=== PATIENT | male | born 1985 | race Caucasian/White ===

== ENCOUNTER 2018-02-09 15:02 | Emergency (ER) | payer OTHER, SELFPAY ==
[2018-02-09 15:04] VITALS: BP 156/87; PULSE 90; RESP 16; TEMP 37.1; O2SAT 98; BMI 28.6
[2018-02-09 15:10] VITALS: PULSE 95; RESP 16; TEMP 37.1; O2SAT 98
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
[2018-02-09 18:06] VITALS: PULSE 78; RESP 14; O2SAT 98
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
== END 2018-02-09 18:07 | disposition home or self-care (01) ==
PROVIDERS: Emergency Provider Emergency Medicine
DX: S16.1XXA Strain of muscle, fascia and tendon at neck level, initial encounter (principal); S40.012A Contusion of left shoulder, initial encounter; S80.02XA Contusion of left knee, initial encounter; V59.40XA Driver of pick-up truck or van injured in collision with unspecified motor vehicles in traffic accident, initial encounter; Y93.9 Activity, unspecified; Y92.9 Unspecified place or not applicable; Y99.0 Civilian activity done for income or pay
CPT/HCPCS: 70450; 71260; 72125; 73030; 73564; 74177; 99285; Q9967